=== PATIENT | female | born 1985 | race Caucasian/White ===

== ENCOUNTER 2025-03-13 15:47 | Outpatient (CLI) | payer OTHER, SELFPAY | END 2025-03-13 15:48 | disposition home or self-care (01) | LOC: KYNREF 15:49 | PROVIDERS: PCP Nurse Practitioner Family; Visit Provider Nurse Practitioner Family | DX: Z80.49 Family history of malignant neoplasm of other genital organs (principal) | CPT/HCPCS: 86304 ==